=== PATIENT | male | born 1995 | race Caucasian/White ===

== ENCOUNTER 2025-06-20 08:00 | Outpatient (RCR) | payer MEDICARE, MEDICAID, SELFPAY ==
--- NOTE | 2025-06-20 10:10 | BH.SGPN.GN ---
Behaviors/Verbalizations/Mental Status: [] Pt alert and oriented, casually dressed and groomed. Eye contact good. Motor activity appropriate. Speech within normal limits. Mood: dysthymic. Affect: congruent. Thoughts linear, logical, no signs of hallucinations or delusions. Client Response/Progress/Benefit: [] Pt participated when prompted during group discussions. Attentive during psychoeducation on self-sabotage and its impact on mental health. Attentive as peers worked to define self-sabotage and identify reasons individuals perform self-sabotage behaviors (easy route at the time, feel as those we don't deserve any better, FOF, comfortable, etc). Attentive as peers identified the forms of self-sabotage that impact their mental health. Attentive during psychoeducation on types of self-sabotage; Procrastination, perfectionism, self-medication, poor communication,and chronic cancelling. Seemed to benefit from gaining awareness about the self-sabotage. Pt to continue IOP tx to improve distress tolerance, challenge distorted thoughts, and prevent decompensation.
--- NOTE | 2025-06-20 11:05 | BH.SGPN.GN ---
Behaviors/Verbalizations/Mental Status: [] Eye contact is good. Motor activity is appropriate. Appearance is casual. Speech is Appropriate. Mood is dysthymic and anxious. Affect is congruent. Thoughts are linear and logical. No evidence of psychosis. Client Response/Progress/Benefit: [] Pt responded well to session, engaged and contributing. Pt discussed with group things that contribute to mental wellness life. With peers, pt discussed things that would sabotage one's mental health wellness. Pt identified things pt personally does to sabotage as over-thinking, indecision, and perfectionism. Pt attentive during psychoeducation on ways to reduce self-sabotage and pt selected awareness and challenging beliefs?as skills that could help pt reduce self-sabotaging behaviors. Pt appeared to benefit from learning skills and gaining awareness of self-sabotaging behaviors. Pt will continue IOP tx to maintain safety, prevent decompensation/re-admission to psych unit, and to increase healthy coping.
--- NOTE | 2025-06-20 15:19 | BH.MDN_ITS ---
Multi-Disciplinary Note Note 60-min Individual: Time Started:: 09:00 Date: 06/20/25 Purpose of session/treatment goals addressed:: To gather information on pt's current stressors, symptoms, triggers, history, and tx goals. Another goal was to build rapport and provide emotional support. Eye Contact:: Good Motor Activity:: Appropriate Appearance:: Casual Speech:: Appropriate Mood:: Depressed Affect:: Congruent Thoughts:: Linear, Logical and No evidence of hallucinations/delusions noted Staff Interventions:: motivational interviewing, psychoeducation on: (cognitive triangle), rapport building, strengths perspective, treatment planning and completed risk assessment / safety planning (cssr-s) Client Response:: Pt responded well to session, open to meeting with therapist. Pt reports that he is trying to have ?an open mind? when it comes to IOP as pt has a history of therapy not being as helpful as he had hoped it would be. Pt has done individual therapy in the past with varying benefit. Reports he was first diagnosed with Bipolar disorder at age 9 and has struggled with his mental health for as long as he can recall. Prior hx of borderline personality disorder and PTSD related to childhood trauma/emotionally distant parents. Long hx of multiple inpatient psychiatric hospitalizations. Most recent hospitalization was 05/10/2025 through 05/17/2025 at [facility] due to an overdose attempt after his girlfriend broke up with him and refused to allow pt to have contact with their 3-month-old daughter. Reports that he had been living with his ex and her mother, and had gotten into an argument with his ex about pt not working. Pt reported he ?blew up? at her via text and when he got home found he was locked out of the house and told he could not return. Shared that he then took around 300 hydroxyzine and called his mother who had him admitted. Pt reports no sx following the overdose attempt outside of fatigue. Did not require medical attention. Has not seen his daughter or ex since and is currently living with his mother. Reports this is a stressor as he is not close with his mother and they often disagree on things. Is currently pursuing legal visitation rights of his daughter which is also a stressor. Pt reports wanting to work on better managing his emotions, reduce intensity and frequency of suicidal ideation, as well as improve his ability to function at baseline. Risks/Concerns:: Pt reports daily, chronic SI that is passive. Pt denies any active SI, plan, or intent as of 06/20/25. Progress Toward Goals/Plan:: Pt's first day of IOP tx, no progress to document. Pt is seeking therapy that will help him to improve his sx and better manage his emotions. Pt noted that he has had mental health issues for most of his life and he has improved in many ways, but he is still very depressed and disconnected from his emotions. Pt will continue IOP tx to prevent decompensation, improve daily functioning, and gain healthy coping skills. Time Stopped:: 09:55
--- NOTE | 2025-06-20 15:19 | BH.MTP ---
Master Treatment Plan Patient Information Program Physician:: Dr. Sylwia Vásquez Primary Therapist:: WINNIE Chery Psychiatric Diagnoses Psychiatric Diagnoses:: Bipolar 1 disorder, depressed, severe; Borderline Personality Disorder Diagnosis Code(s):: F31.4 Estimated LOS Estimated LOS (in weeks):: 6 Problem/Goal #1 Problem/Goal #1 Stated Goal:: Client will increase mood stability, reduce depression, and reduce suicidal thoughts due to Bipolar 1 disorder through the Intensive Outpatient Program. Description of Barriers: Pt has been in several prior therapy groups and reports limited benefit. Pt additionally notes that he has unreliable transportation. Pt reports limited supports in the area as well and is currently living with his mother which is a stressor. Pt reports ongoing legal issues as well which could impact attendance. Functional Impact: Wali is a 29y/o male who presented to [facility] IOP program for further evaluation and treatment of bipolar 1 disorder current episode depressed and borderline personality disorder. Wali reports long a long history of bipolar disorder diagnosed initially when he was 9 years old with multiple episodes of decompensation and hospitalization. Most recently he was prescribed trazodone to help him sleep but reports that this put him into a manic episode leading to his girlfriend kicking him out. They have a 3-month-old daughter together and he has not seen her since April. He notes that as soon as she kicked him out he attempted to overdose on a mixture of pills and said he thinks he took around 300 hydroxyzine but only felt a little bit tired. Reportedly did not require medical or ICU admission and was admitted to [facility] 05/10/2025 through 05/17/2025 for the suicide attempt. He was taken to the hospital because after he took the pills he reached out to his mother who called 911. He endorses in the hospital he was taken off of all of his medications and placed on Risperdal. Since discharge Risperdal has been titrated up to 2.5 twice daily and he was started back on Tegretol 200 mg daily, hydroxyzine as needed and he has also been started on Caplyta 42 mg and Zoloft 25 mg. He said he is currently feeling depressed and just feels depressed at baseline and does not remember ever not feeling depressed. He is chronic suicidal ideation and denies any plans to harm himself at this time. Notes he sleeps a lot of hours but does not feel rested and has poor energy and concentration throughout the day, also endorses difficulty with memory and crying spells. Goal Relevant Strengths/Supports: Pt is resilient, open to therapeutic environment, and motivated Objectives Objective #1: Stated Objective: Client will learn and utilize 2-3 healthy coping strategies to better manage depressive and mood symptoms as shown by reduced DSM-5 scores. Interventions: Through group and individual sessions, therapist will help client identify triggers and warning signs of depression and emotional dysregulation including emotional, physical, and behavioral changes.Therapist will teach client various coping skills to manage symptoms and give tangible resources to use to regulate emotions. Therapist will use cognitive restructuring techniques and help client gain awareness of negative thoughts that reinforce depressive cycles. Discharge Criteria: Pt will be able to identify and report implementing 2-3 coping mechanisms for depression. Pt will show a reduction in depressive sx per DSM-5 and self report. Target Date: 08/02/25 Review Date: 07/11/25 Objective #2: Stated Objective: Client will learn 2-3 techniques to better manage interpersonal relationships. Interventions: Through group and individual sessions, client will learn strategies to improve communication, resolve conflict, and increase emotional regulation to better manage interpersonal relationships. Therapist will also teach client about self-forgiveness, boundaries, and radical acceptance to help client heal from previous relationships. Discharge Criteria: Pt will self-report improved relationships and reduced interpersonal conflict. Pt will additionally describe use of at least 2 interpersonal communication skills. Target Date: 08/02/25 Review Date: 07/11/25
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
--- NOTE | 2025-06-21 08:25 | BH.PSY.EVA_ITS ---
Initial Treatment Plan Patient Information Visit Information: ADMISSION DATE: EXPECTED LOS: 4-6 weeks
--- NOTE | 2025-06-21 08:25 | BH.DR.ITP ---
Initial Treatment Plan Patient Information Visit Information: ADMISSION DATE: EXPECTED LOS: 6-8 weeks Diagnoses:: Bipolar I disorder most recent episode depressed Problems/Symptoms Problem #1:: Bipolar I disorder most recent episode depressed Symptom:: depressed mood, excessive sleep with poor appetite, poor energy, passive SI, poor concentration, poor memory with crying spells and anhedonia
--- NOTE | 2025-06-21 09:45 | BH.NA ---
Physical Data Vital Signs Pulse Rate: 78 Blood Pressure: 136/84 Height/Weight Height: 1.83 m Weight:: 108.862 kg Weight in Pounds: 240.0 lbs Current Medication Compliance Medication Compliance Do you take your medication as prescribed?: Yes Functional Assessment Sleep Pattern Describe any problems with sleeping: Client states he has been sleeping 12-14 hours per week. Sensory/Communication Assess Vision Problems Do you have any vision problems?: Glasses Communication Problems Do you have difficulty understanding what people are saying?: No Medical Problems/History Respiratory Conditions Respiratory: Other (See comments) (TANISHA- states he had a sleep study years ago that showed mild sleep apnea but states it was not severe enough for insurance to cover a PAP machine) Gastrointestinal Conditions Gastrointestinal: Other (See comments) (GERD) Pain Assessment Do you have acute or chronic pain?: No Surgical History Surgical History Have you had any surgeries? If so, list type and date:: Yes (appendectomy, ear tubes, right arm) Substance Abuse Substance Abuse Please describe substance abuse in the last 30 days:: Client denies tobacco or alcohol use. Client states he has had some marijuana use in the past but denies at this time. Client denies caffeine use. Mental Status Summary Mental Status Significant Findings/Observations on Appearance and Mood:: Client is alert and oriented x 4. Client is casually groomed. Client is cooperative with assessment. Client makes good eye contact. Client's voice has normal rate and volume. Client has a somewhat restricted affect. Client makes logical associations and has normal processing. Client denies delusions/hallucinations at this time, but does state he has a history of them with jayla. Client reports chronic passive SI, stating I can remember not wanting to live as early as 4 years old stating this has been chronic his whole life. Client denies any active thoughts or intent or plan. Suicide Assessment Suicidal Ideation Are you currently or have you been suicidal in the past?: Yes Suicidal Intentional Rating Scale (SIRS): Current suicidal thoughts/No plan/Contracts for safety (chronic passive ideations) Physician Notification Past Psychiatric History MH Treatment Hx Past Psychiatric Medications:: [place] (made him feel too numb), trazodone (took for 1 week, made him manic), Seroquel, Depakote, Risperdal (muscle tension) Age of first mental health symptoms: Client states he was diagnosed with bipolar disorder and ADHD when he was 9 years old. Client states he started medication for mental health at that time. Describe (age, circumstance, etc) any past hospitalizations: Client states he has been hospitalized as a minor several times, and states he has been hospitalized as an adult 4 or so times, stating the last hospitalization was at [facility] 05/10-05/17/25 due to a suicide attempt by overdosing on his medications. Current providers for mental health treatment (counselor, psychiatrist, child welfare caseworker, etc.): Allison Mata at [facility] for psychiatry Fall Risk Assessment Age Age: Less than 60 Mental Status Mental Status: Willing & able to ask for assistance when needed Physical Status Physical Status: No problems Impairments Impairments: None Elimination Elimination: Continent AND independent Gait or Balance Gait or Balance: Walks independently Hx of Falls History of falls in the past 6 months: No known history Medications/Substances Psychotropics:: Antidepressants, Antipsychotics and Antihistamines (e.g. Benadryl) Medications/substances used within the past 24 hours or ordered to administer: 3 or more of the medications/substances listed above Total Score Total Points:: 2 RN Summary of Impressions Impressions Recommendations Impressions: Psychiatric Issues: Bipolar 1 disorder Level of Care How do the client's current symptoms and functional deficits support need for this level of care?: Client is at [facility] after a recent hospitalization at [facility] in April 2025 after a suicide attempt by overdose of medication. Client states this was after his girlfriend broke up with him and took his 3 month old daughter with her when she left. Client states he has not seen his daughter and this is very stressful for him. Client reports chronic SI since he was a child, and states his chronic SI continues to but denies active thoughts, intent or plan at this time. Client states his daughter is a protective factor. Client reports a long history of periods of jayla since he was a child, and states he does have hallucinations when he goes off his mental health medication. Client states he is compliant at this time with medication and denies delusions/hallucinations. Client does report panic attacks, feeling like he disassociates for periods of time, and has decreased energy and is sleeping 12-14 hours per day. IOP will promote gains and prevent further decompensation while providing social support and skills training. Nutritional Screen Height/Weight Height: 1.83 m Weight:: 108.862 kg Weight in Pounds: 240.0 lbs Nutrition Screening Normal Weight: 108.862 kg Normal/Usual Weight in Pounds: 240.0 lbs Have you lost weight without trying: No (states his lowest weight was 190lbs and has been trying to lose weight again but has not lost weight) Have you been eating poorly because of a decreased appetite: Yes (poor appetite due to stress, break up with girlfriend and not seeing his daughter) Recently been on tube feeds, TPN, or have any nutritional access device in place: No Have any large open wounds or wounds that are not healing: No Calculated Weight Change: 0 Change in weight Score: 0 MST Screening Tool Score: 1
[2025-06-21 10:09] VITALS: BP 136/84; PULSE 78
--- NOTE | 2025-06-21 10:10 | BH.SGPN.GN ---
Behaviors/Verbalizations/Mental Status: [] Pt alert and oriented, casually dressed and groomed. Eye contact good. Motor activity appropriate. Speech within normal limits. Affect congruent, mood euthymic. Thoughts linear, logical, no signs of hallucinations or delusions. Client Response/Progress/Benefit: [] Client engaged during group session as evidenced by contributions during group discussions, appearing to listen to others, and taking notes. Client engaged in small group discussion about barriers that keep people from having difficult conversations. Group identified potential reasons individuals avoid difficult conversations which included; feeling uncomfortable, reaction of others, fear, and not in a good place mentally. Group also identified benefits to having crucial conversations. Pt identified that they only set boundaries in crucial conversations when the other person decides to do so first. Client seemed to benefit from increased awareness and education about importance of having difficult conversations and recognizing the impact of avoiding such conversations. Client to continue IOP to prevent decompensation, increase healthy coping, and improve functioning. Narrative Note: []
--- NOTE | 2025-06-21 11:10 | BH.SGPN.GN ---
Behaviors/Verbalizations/Mental Status: [] Pt alert and oriented, casually dressed and groomed. Eye contact good. Motor activity appropriate. Speech within normal limits. Affect congruent, mood euthymic. Thoughts linear, logical, no signs of hallucinations or delusions. Client Response/Progress/Benefit: [] Pt was an active participant, engaged in activities and discussion. Pt able to identify ways they negatively contribute to crucial conversations and pt was engaged during psychoeducation of the different ways to build interpersonal effectiveness skills. Pt and peers practiced mirroring and active listening in partners. Group reviewed [employer] [employer] and used the handout to help map out how they would like a crucial conversation in their life to go. Pt shared with group that they want to have a crucial conversation with their ex about the state of their relationship moving forward. Pt will continue IOP tx to prevent decompensation and improve daily functioning Narrative Note: []
--- NOTE | 2025-07-15 10:10 | BH.SGPN.GN ---
Behaviors/Verbalizations/Mental Status: [] Pt alert and oriented, casual appearance, eye contact good. Motor activity appropriate. Speech within normal limits. Affect congruent. Mood euthymic. Thoughts linear, logical, no signs of hallucinations or delusions. Client Response/Progress/Benefit: [] Pt was an active participant in group discussions on defining conflict (internal/external) and possible benefits to conflict. Attentive during psychoeducation on conflict styles (avoidant, accommodating, competing, cooperative) and engaged during group discussion in which the group identified when it is beneficial to use conflict styles and pitfalls of each conflict style. Pt noted they connect most with avoidant and accommodating style of conflict. Pt was an able to connect the impact current style of conflict has on functioning. Benefited from increased awareness of the impact of conflict styles on mental health. Will continue in IOP to improve distress tolerance, continue building healthy coping skills, and prevent decompensation.
== END 2025-06-21 23:59 | disposition home or self-care (01) ==
LOC: BHIOP 08:00
PROVIDERS: PCP Family Medicine; Referring Provider Internal Medicine; Visit Provider Internal Medicine
DX: F31.4 Bipolar disorder, current episode depressed, severe, without psychotic features (principal); F60.3 Borderline personality disorder
CPT/HCPCS: S9480; 90837; 90853

== ENCOUNTER 2025-06-24 08:36 | Outpatient (RCR) | payer MEDICARE, MEDICAID, SELFPAY ==
--- NOTE | 2025-06-24 09:00 | BH.SGPN.GN ---
Behaviors/Verbalizations/Mental Status: [] Eye contact is good. Motor activity is appropriate. Appearance is casual. Speech is Appropriate. Mood is anxious and dysthymic. Affect is congruent. Thoughts are linear and logical. No evidence of psychosis. Reviewed daily check in sheet and suicidal ideations are at baseline. Client Response/Progress/Benefit: [] Pt was an active participant in group discussions. Daily symptom tracker notes 3/5 for depression, and 2/5 for anxiety. Pt shared his insights regarding radical acceptance and his limitations. From his perspective, accepting that his life will always be negative is helpful for him. Group allowed him to vent and did not challenge this perspective despite at its core is negative beliefs about himself and his future. Primary stressors include ongoing custody/court issues regarding his daughter. Limited progress. Benefited from group support, encouragement, and feedback. Will continue in IOP to maintain safety, prevent decompensation/re-admission, and increase healthy coping. Narrative Note: []
--- NOTE | 2025-06-24 10:05 | BH.SGPN.GN ---
Behaviors/Verbalizations/Mental Status: [] Eye contact is good. Motor activity is appropriate. Appearance is casual. Speech is Appropriate. Mood is dysthymic. Affect is full. Thoughts are linear and logical. No evidence of psychosis. Client Response/Progress/Benefit: [] Pt participated during the group discussion, providing input and remaining attentive during psychoeducation. Participated in experiential activity. Pt contributed during interactive discussion on the consequences of unhealthy expression of emotions. Worked with group to identify several consequences which included hurting relationships and isolating oneself. Contributing during interactive discussion on common potholes to effectively communicating such as; avoidance, isolation, bottling up emotions, yelling, and several more. Pt was able to relate and make connections between the experiential activity and the overall topic, managing emotions through activity. Benefited from increased awareness of how stress and emotions can impact one's ability to communicate. Will continue in IOP to prevent decompensation/re-admission to psych unit, maintain safety, improve daily functioning, and increase the use of healthy coping skills. Narrative Note: []
--- NOTE | 2025-06-24 11:10 | BH.SGPN.GN ---
Behaviors/Verbalizations/Mental Status: []Client alert and oriented, casually dressed and groomed. Eye contact good. Motor activity appropriate. Speech within normal limits. Affect congruent, mood anxious and depressed. Thoughts linear, logical, no signs of hallucinations or delusions. Client Response/Progress/Benefit: []Client engaged in session AEB client listening attentively to peers and providing input. Attentive during psychoeducation on 4 zones of regulation. Pt able to identify feelings and behaviors for each zone. Pt identified coping skills one can use to support self in each zone. Pt stated belief that pt is in the green zone today. Pt reports plan to reach out to supports today. Benefited from increased education on zones of regulation or stages of alertness for emotions and healthy coping skills to use for each zone. Pt will continue IOP tx to increase self-awareness, improve application of skills, and prevent decompensation. Narrative Note: []
--- NOTE | 2025-06-25 09:00 | BH.SGPN.GN ---
Behaviors/Verbalizations/Mental Status: [] Pt alert and oriented, Casually dressed and groomed. Eye contact good. Motor activity appropriate. Speech within normal limits. Affect congruent, mood calm. Thoughts linear, logical, no signs of hallucinations or delusions. Reviewed pt?s symptom tracker today, 2/5 for suicidal ideation, 05 for plan, and intent with 5 being severe. Client does not appear to be imminent risk to self. 06/25/25. Client Response/Progress/Benefit: []Pt was an active participant in group discussions. Attentive. Per patients daily symptom tracker, pt indicates a 3/5 for depression and a 3/5 for anxiety, with 5 being severe. Pt's mental health positive was making it to group. His other positive was spending a relaxing day in bed. The client stated that while this was relaxing it is not much different from how he normally spends his day, and does not have many hobbies. Pt's stressor was dealing with the court systems to gain rights to see his daughter. Pt was supportive and attentive to others in the group. Pt seemed to benefit from support from peers. Will continue IOP tx to promote healthy coping mechanisms, reduce negative thinking patterns, and prevent decompensation.
--- NOTE | 2025-06-25 10:05 | BH.SGPN.GN ---
Behaviors/Verbalizations/Mental Status: [] Eye contact is good. Motor activity is appropriate. Appearance is casual. Speech is Appropriate. Mood is anxious. Affect is congruent. Thoughts are linear and logical. No evidence of psychosis Client Response/Progress/Benefit: [] Pt was an active participant during group discussions and group activities. This portion of group was very psychoeducation heavy and pt was attentive during psychoeducation. Engaged during activity in which they identified which type of foods (i.e. carbs, sugar, salt, fast food, caffeine, etc) they seek out when sad, tired, angry, stressed, anxious, etc. Pt was able to identify the impact that certain foods have on their mental health through group example which was beneficial. Benefited from increased awareness of the connection between nutrition and mental health. Will continue in IOP to prevent decompensation/re-admission to psych unit, increase healthy coping, maintain safety, and improve functioning. Narrative Note: []
--- NOTE | 2025-06-25 11:10 | BH.SGPN.GN ---
Behaviors/Verbalizations/Mental Status: []Pt alert and oriented, casually dressed and groomed. Eye contact good. Motor activity appropriate. Speech within normal limits. Affect congruent, mood euthymic and anxious. Thoughts linear, logical, no signs of hallucinations or delusions. Client Response/Progress/Benefit: [] Pt was an active participant during group discussions and group activities. This portion of group was very psychoeducation heavy and pt was attentive during psychoeducation. Engaged during activity in which they identified their own maintenance cycles with food and how it impacts their mental health symptoms. Pt and peers identified barriers to breaking these cycles as well as ways to combat barriers. Pt stated he wants to work on reducing his salt intake. Benefited from increased awareness of the connection between nutrition and mental health and from identifying strategies. Will continue in IOP to prevent decompensation, increase distress tolerance, and improve daily functioning. ? Narrative Note: []
--- NOTE | 2025-06-26 09:00 | BH.SGPN.GN ---
Behaviors/Verbalizations/Mental Status: [] Pt alert and oriented, Casually dressed and groomed. Eye contact fair. Motor activity appropriate. Speech within normal limits. Affect congruent, mood depressed. Thoughts linear, logical, no signs of hallucinations or delusions. Reviewed pt?s symptom tracker today, reports a 5/5 for suicidal ideation and a 0/5 for plan, and intent. Pt's scores are elevated due to a situational stressor. Pt is future oriented. Does not appear in imminent risk of danger to self or others. 06/26/25. Client Response/Progress/Benefit: []Pt was an active participant in group discussions. Attentive. Per patients daily symptom tracker, pt indicates a 5/5 for depression and a 2/5 for anxiety, with 5 being severe. Pt's first mental health win was having an easier time falling asleep. Pt stated that the previous day was awful and that he could not think of any other positives. When challenged to try to find a positive, pt could not, stating that he made it to group, but does not consider that a win. Pt's stressor is facing possible eviction from his mother's apartment. Pt stated that the landlord does not want him there, as he is involved in a legal trevino for his daughter, and does not want children in the complex. Pt seemed to benefit from support from peers. Will continue IOP tx to promote healthy coping mechanisms, reduce negative thinking patterns, and prevent decompensation.
--- NOTE | 2025-06-26 11:10 | BH.SGPN.GN ---
Behaviors/Verbalizations/Mental Status: [] Pt alert and oriented, casually dressed and groomed. Eye contact good. Motor activity appropriate. Speech within normal limits. Affect congruent, mood anxious. Thoughts linear, logical, no signs of hallucinations or delusions. Client Response/Progress/Benefit: [] Pt was attentive and contributed in small and larger group discussion. Pt completed strengths exploration worksheet and identified personal strengths to include: love, wisdom, and empathy. Pt able to acknowledge how these strengths are helping them and can continue to help pt in their mental health journey. Shared wanting to focus on set boundaries with others. . Benefited from identifying personal strengths and strategies for enhancing use of identified strengths. Pt to continue IOP tx to promote use of healthy coping skills, increase self-confidence, and reduce negative thinking patterns. Narrative Note: []
--- NOTE | 2025-06-26 15:09 | BH.MDN_ITS ---
Multi-Disciplinary Note Note 60-min Individual: Time Started:: 10:25 Date: 06/26/25 Purpose of session/treatment goals addressed:: Purpose of session was to aid pt in problem-solving current stressor, as well as increase insight into pt's internal locus of control. Eye Contact:: Good Motor Activity:: Appropriate Appearance:: Casual Speech:: Appropriate Mood:: Anxious and Depressed Affect:: Congruent Thoughts:: Linear, Logical and No evidence of hallucinations/delusions noted Staff Interventions:: thought challenging, motivational interviewing, psychoeducation on: (locus of control, spoon theory), CBT techniques, strengths perspective and other (provided resources on supportive housing options) Client Response:: Pt responded well to session, open to meeting with therapist. Pt shared that he is enjoying the IOP groups so far, though is finding himself feeling exhausted after group most days. Noted leaving yesterday and having limited energy to do much else afterward. Expressed frustration that it feels things in life that appear to come easily for others leave him feeling ?completely drained?. Discussed finding that others do not seem to understand how difficult it is to function day to day and that the only time her has felt u nderstood is when talking with someone struggling with chronic medical conditions. Reports this lack of understanding and empathy was a major area of difficulty in his last relationship. Pt connected well with psychoeducation on ?spoon theory? and inquired how make things require fewer spoons for him. Discussion on importance of perspective and consistent skill application to improve overall resilience and acceptance of his mental health struggles rather than viewing self as a ?problem to be fixed?. Plans to begin reminding himself of this throughout the week as he often views himself as not being ?fixed? fast enough. Went on to describe currently struggling with increased anxiety as he was informed by the landlord that he is no longer able to stay with his mother. Stated that the landlord did not give a concrete reason other than that pt is not listed on the lease. Pt reports that he does not want to get his mother evicted but does not have anywhere else to go. Recently applied for [employer] but is uncertain of where he is on the list. Receptive of looking with therapist and pt is projected a 3 month wait. Noted that his father would be willing to help with rent until receiving his housing voucher but pt is uncertain of which rentals are on the approved voucher list or how to find this out. Therapist provided pt with information regarding [place] [employer] to acquire a list of approved rental properties. Risks/Concerns:: Pt denies any active suicidal ideation, plan, or intent. Pt does have chronic passive thoughts of and reports that these are more prevalent today given his current stressors. Future orients and protective factors noted. Progress Toward Goals/Plan:: Progress limited as pt still early in tx. Does indicate finding the group environment and information he is leaving in sessions to be beneficial. Reports that knowing he is not alone in his mental health struggles has aided in improving his mood, as well as having a consistent place to go for support. Continues to struggle with significant mood instability and low distress tolerance reinforcing mood instability. Continues to report spending much of his time sleeping when he is not in group and notes not having any hobbies or special interests. Receptive of beginning to work with therapist on this. Recommended continued IOP treatment to improve mood stability and ability to function, as well as prevent decompensation. Time Stopped:: 11:19
--- NOTE | 2025-07-05 10:10 | BH.SGPN.GN ---
Behaviors/Verbalizations/Mental Status: [] Eye contact is good. Motor activity is appropriate. Appearance is casual. Speech is Appropriate. Mood is dysthymic. Affect is congruent. Thoughts are linear and logical. No evidence of psychosis. Client Response/Progress/Benefit: [] Pt was an active participant in group discussions. Attentive during psychoeducation. Contributed during interactive discussions in which peers attempted to define crisis. Group identified examples of crisis. Group also worked together to identify warning signs and unhealthy responses to crisis which included impulsivity, isolation, significant sleep changes, irrational thoughts/behaviors, and suicidal thoughts. Pt identified top 3 personal warning signs as:eating less, racing thoughts, and loss of interest. Benefited from increased understanding of crisis and awareness of personal responses to crisis. Pt will continue IOP tx to increase distress tolerance skills, maintain safety, and prevent decompensation/re-admission to psych unit. Narrative Note: []
--- NOTE | 2025-07-05 10:55 | PCM.BH.PN ---
Intake Vital Signs 06/21/25 10:09 07/05/25 10:55 Height 1.83 m 1.83 m Weight: 108.862 kg BP 136/84 H Pulse 78 BH Intake Visit Reasons: f/u bipolar 1 disorder most recent episode depress Allergies Sulfa (Sulfonamide Antibiotics) Adverse Reaction (Verified 06/21/25 09:52) Rash Medications ?Medication ?Instructions ?Recorded ?Confirmed ?Type diphenhydramine HCl 25 mg capsule 25 mg PO QHS PRN sleep 06/21/25 06/21/25 History (Benadryl) divalproex 250 mg tablet,delayed 250 mg PO BID #60 tabs 06/21/25 Rx release (Depakote) hydroxyzine pamoate 50 mg capsule 50 mg PO Q4H PRN anxiety 06/21/25 06/21/25 History lumateperone 42 mg capsule 42 mg PO DAILY 06/21/25 06/21/25 History (Caplyta) risperidone 0.5 mg tablet 0.5 mg PO BID 06/21/25 06/21/25 History risperidone 2 mg tablet 2 mg PO BID 06/21/25 06/21/25 History sertraline 25 mg tablet 25 mg PO DAILY 06/21/25 06/21/25 History HPI () History of Present Illness History provided by: patient Chief complaint: Depression HPI: Mood and anxiety doing better, feels overall, no SI today, got a new car, stressed d/t car breaking down, found a place to live, wants to get custody of daughter, July 25. Sleep is about the same. Still having anger fits, maybe less frequent, intensity high, couple hours last week, -Current psychiatric medications: Risperdal 2.5 mg twice daily, sertraline 25 mg, Caplyta 42 mg, hydroxyzine 50 mg every 4 hours as needed, Depakote 250 mg twice daily -SUBJECTVE: Reports overall mood and anxiety are doing better, still feels depressed but feels like his baseline depression is less than usual. Thinks the Depakote is helpful but also thinks that the fact that he got a new car and found a place to live have also improved mood. Has court July 25 to further attempt to get custody of daughter. Does note still having anger fits though less frequent, last episode was high intensity last week that lasted a couple of hours but notes it was triggered by car breaking down. No SI today. Tolerating Depakote without any acute complaints. Exam Mental Status Exam- Psych () Appearance casually dressed, adequately groomed and no apparent distress Attitude calm and other (Superficially cooperative) Activity/Motor Behavior MSE activity/motor behavior finding no adventitious movements Speech regular rate and regular volume Mood euythmic Affect full range Thought Process linear and logical Thought Content no delusions and no hallucinations Suicidal Ideation none Homicidal Ideation none Attention intact Concentration intact Sensorium/Orientation awake and alert Memory/Cognition intact Insight fair Judgement fair Assessment & Plan () Assessment & Plan (1) Bipolar 1 disorder, depressed, severe: Plan: Patient has found the Depakote helpful and feels like underlying depression level is less than usual though still does feel depressed. Denying any SI. Discussed further adjusting Depakote. He reports that the outpatient provider he is seeing for psychiatric care ordered lab work including a Depakote level that he is having done tonight, we will attempt to follow this lab work and may uptitrate Depakote depending on labs. Continue other current psychiatric medications. Did ask if these labs were going to be obtained so that his provider can further adjust his medications and he said that they were being obtained so that I would have additional information to make further adjustments. Charges/Coding Behavior Health Behavior Health EST Pt E/M: 62833 Est Pt Level IV
--- NOTE | 2025-07-05 11:15 | BH.SGPN.GN ---
Behaviors/Verbalizations/Mental Status: []Pt alert and oriented, appropriate grooming/appearance. Eye contact good. Motor activity appropriate. Speech within normal limits. Affect congruent, mood depressed. Thoughts linear, logical, no signs of hallucinations or delusions. Client Response/Progress/Benefit: []Pt was an active participant in group discussions. Attentive during psychoeducation. In small group pt along with peers developed an active plan for their crisis warning signs. Pt identified three crisis warning signs as well as an action plan for each. One crisis warning sign was loss of interest. Pt identified strategies to help with this such as: get back into video games, driving, and research support groups/activities. Benefited from increased awareness of crisis warning signs and by developing crisis intervention strategies. Will continue in IOP to improve distress tolerance, challenge distortions, and prevent decompensation. Narrative Note: []
--- NOTE | 2025-07-05 14:48 | BH.MDN_ITS ---
Multi-Disciplinary Note Note 45-min Individual: Time Started:: 09:15 Date: 07/05/25 Purpose of session/treatment goals addressed:: Purpose of session was to use the concept of locus of control to aid pt in identifying where he is able to take steps to continue to manage daily stressors, as well as give himself credit for recent progress. Eye Contact:: Good Motor Activity:: Appropriate Appearance:: Casual Speech:: Appropriate Mood:: Euthymic Affect:: Congruent Thoughts:: Linear, Logical and No evidence of hallucinations/delusions noted Staff Interventions:: motivational interviewing, psychoeducation on: (locus of control), CBT techniques and strengths perspective Client Response:: Pt actively engaged in session. Shared he had a recent stressor in which his car broke down, beyond what would be financially appropriate to fix. Pt shared that he was able to reach out to his father who was willing to aid him in purchasing a new car. Additionally, pt shared following-through with looking into the [facility] approved housing list and was able to successfully find an apartment. Shared plans to move in within the next few weeks. These were the two stressors immediately impacting his mood and reinforcing feelings of hopelessness. Pt describes increased sense of relief as a result of these stressors being resolved. Reports that when one thing in his life appears to ?go wrong? he struggles with engaging in all or nothing thinking and begins to convince himself that everything is bad or going to ?go wrong?. Pt receptive of psychoeducation on locus of control and identifies with primarily having and external locus of control. Insight that this has led pt to view the world as if he is a victim of his circumstances and has led to a sense of not being able to do anything about his circumstances. Did well to work with therapist on giving himself credit for where he was able to focus on addressing what was in his control in these recent stressor. Reports wanting to begin a regular accomplishment log and plans to begin doing so on the notes carol of his phone. Reports that actively challenging himself to ask what is in his control in a situation will likely improve his mood and distress tolerance skills in the moment as well. Risks/Concerns:: Pt denies any active suicidal ideation, plan, or intent. Progress Toward Goals/Plan:: Progress noted. Pt reports improved mood stability and increased sense of hope. Pt noted that he has been able to take steps to improve willingness to reach out to supports for help when needing it and not beating himself up for needing assistance. Pt reports he is additionally working on acceptance of his current estrangement with his ex and daughter. Continues to struggle with consistent skill application and mood stability. Pt recommended continued IOP tx to promote ongoing gains, increase functioning, and prevent decompensation. Time Stopped:: 09:45
--- NOTE | 2025-07-08 09:40 | BH.MDN_ITS ---
Multi-Disciplinary Note Note 30-min Individual: Time Started:: 09:10 Date: 07/08/25 Purpose of session/treatment goals addressed:: To work on goal #1 of pt's tx plan and to challenge negative thinking patterns. Eye Contact:: Good (tearful) Motor Activity:: Appropriate Appearance:: Casual Speech:: Appropriate Mood:: Depressed Affect:: Congruent Thoughts:: Linear, Logical and No evidence of hallucinations/delusions noted Staff Interventions:: thought challenging, CBT techniques, strengths perspective and completed risk assessment / safety planning Client Response:: Pt responded well to session, open to meeting with therapist. Pt tearful as soon as he entered the office and stated he is struggling with loneliness and missing his ?ex?. Pt reports that since the relationship ended 2 months ago, he has been distracted by trying to navigate stressors of housing, finances, and his car. These stressors have all been addressed and pt feels he is now able to think more about when led to the break- up. Shared ?I don?t want to live without my ex? and expressed remorse regarding the conflict leading to their break-up and pt being kicked out of the home. Pt shared attempting to reach out to her on various occasions without success. Reports trying to respect the boundary and accept that the relationship is over but is struggling with increased loneliness. Stated he feels as though he is ?always abandoned? and is beginning to reconsider trying to have a relationship with his daughter as he is worried this will be ?too much emotional pain? on the days he does not see her. Pt responded well to emotional support and gentle thought challenging by therapist. Pt noted that although he feels low now, he does recognize that he has made progress since his hospitalization in April. Pt receptive to discuss other ways he can reduce loneliness outside of a romantic relationship. In this discussion, pt noted that he does not desire to seek friendship or companionship in other ways. Noted that if he cannot have a relationship with his ex, he plans to ?move on? and pursue a new romantic relationship. Does not believe he would benefit from continuing to work on his mental health and personal relationship with himself first. Expressed only having purpose when in a relationship and does not view this as problematic. Therapist attempted to aid pt in identifying benefits of finding meaning and purpose in other things as well to prevent decompensation when not romantically involved with others. Pt resistant to this and expressed plans to download several dating apps to reduce loneliness and improve his mood. Risks/Concerns:: Pt reports having passive suicidal ideations this morning due to lonelieness and pt?s ex not responding to his attempts to reach out. Pt denies any active SI, plan, or intent to this therapist. Completed a CSSR-S since last visit. Pt reports ability to maintain safety and pt is future oriented. Progress Toward Goals/Plan:: Pt endorses worsening depression and passive SI today triggered by recent attempts to reach out to his ex-girlfriend. Pt able to challenge his thoughts some and expressed accepting the end of the rel ationship, but does report wanting to pursue a new relationship rather than give himself time to work on his mental health independent of a romantic relationship. Pt will continue IOP tx to prevent further decompensation, increase healthy support, and improve mood stability. Time Stopped:: 09:45
--- NOTE | 2025-07-08 10:10 | BH.SGPN.GN ---
Behaviors/Verbalizations/Mental Status: [] Eye contact is good. Motor activity is appropriate. Appearance is casual. Speech is Appropriate. Mood is content. Affect is congruent. Thoughts are linear and logical. No evidence of psychosis. Client Response/Progress/Benefit: [] Pt engaged participant AEB listening to others, engaging in activity, and providing feedback throughout. Attentive during psychoeducation and provided insight into obstacles that impede mental wellness. Pt shared with group current mental health reality and desired mental health reality. Identified barriers to desired reality which included difficulties with self-doubt, negative self-talk, and isolating. Benefited from taking look at current mental health state and obstacles for progress. Pt to continue in IOP tx to prevent decompensation, stabilize mood, and improve functioning. Narrative Note: []
--- NOTE | 2025-07-08 11:10 | BH.SGPN.GN ---
Behaviors/Verbalizations/Mental Status: [] Eye contact is good. Motor activity is appropriate. Appearance is casual. Speech is Appropriate. Mood is anxious and content. Affect is congruent. Thoughts are linear and logical. No evidence of psychosis. Client Response/Progress/Benefit: [] Pt was an engaged participant in group discussion and activity. Worked with group to identify strategies to help overcome barriers and obstacles to desired reality. Group developed strategies for the common barriers. Identified personal barriers to desired reality which included Self-doubt, fear, all or nothing thinking, and minimization. Was able to identify a skill to implement immediately to address self-doubt. Pt seemed to benefit from increased repertoire of healthy coping skills/strategies to overcome common barriers to moving forward. Will continue in IOP to prevent decompensation, stabilize emotions, increase healthy coping, and improve functioning. Narrative Note: []
--- NOTE | 2025-07-10 09:00 | BH.SGPN.GN ---
Behaviors/Verbalizations/Mental Status: [] Pt alert and oriented, Casually dressed and groomed. Eye contact good. Motor activity appropriate. Speech within normal limits. Affect congruent, mood depressed. Thoughts linear, logical, no signs of hallucinations or delusions. Reviewed pt?s symptom tracker today, denies suicidal ideation, plan, and intent.07/10/25 Client Response/Progress/Benefit: []Pt was an active participant in group discussions. Attentive. Per patients daily symptom tracker, pt indicates a 5/5 for depression and a 4/5 for anxiety, with 5 being severe. Pt's mental health positive was getting out of bed today. Pt stated that he has been struggling to get out of bed the past few days due to depressive symptoms. Pt's other mental health positive was that he found a friend that he could talk and relate to. Pt's reported that his stressor is having to deal with the feelings from his break-up that he has ignored due to having to deal with other stressors that are now resolved. Pt stated that he is working through processing these emotions in individual therapy. Pt was supportive and attentive to others in the group. Pt seemed to benefit from support from peers. Will continue IOP tx to promote healthy coping mechanisms, decrease negative thinking patterns, and prevent decompensation.
--- NOTE | 2025-07-10 10:15 | BH.SGPN.GN ---
Behaviors/Verbalizations/Mental Status: [] Client alert and oriented, casually dressed and groomed. Eye contact good. Motor activity appropriate. Speech within normal limits. Affect congruent, mood euthymic and anxious. Thoughts linear, logical, no signs of hallucinations or delusions. Client Response/Progress/Benefit: [] Client responded well to session AEB taking notes throughout and listening attentively to others. Client was attentive throughout group activity identifying famous individuals and how they overcame failure to be successful. Client helped group identify how fear of failure can impact mental health and relationships. Group identified it leads to self-sabotage, not trying, avoidance, and isolation. Client participated in experiential activity, working with group members to problem solve. Appeared to benefit from increased knowledge of fear of failure. Will continue IOP tx to improve self-confidence, reduce distorted thinking patterns, and increase emotional regulation. Narrative Note: []
--- NOTE | 2025-07-10 11:15 | BH.SGPN.GN ---
Behaviors/Verbalizations/Mental Status: [] Client alert and oriented, casually dressed and groomed. Eye contact good. Motor activity appropriate. Speech within normal limits. Affect congruent, mood euthymic and anxious. Thoughts linear, logical, no signs of hallucinations or delusions. Client Response/Progress/Benefit: [] Client responded well to session, engaged in the experiential activity and attentive throughout group processing. Client completed fear of failure worksheet and was able to identify thoughts and behaviors that reinforce personal fear of failure including cognitive distortions. Client participated in small group discussion regarding strategies to overcome fear of failure. Identified wanting to work on reminding himself he is not responsible for other's feelings. Appeared to benefit from increased knowledge of strategies to combat fear of failure and gaining self-awareness. Client will continue IOP tx to prevent decompensation, promote gains in reduced depressive symptoms and to reduce anxiety and avoidance. Narrative Note: []
--- NOTE | 2025-07-15 11:10 | BH.SGPN.GN ---
Behaviors/Verbalizations/Mental Status: []Client alert and oriented, casually dressed and groomed. Eye contact good. Motor activity appropriate. Speech within normal limits. Affect congruent, mood euthymic. Thoughts linear, logical, no signs of hallucinations or delusions. Client Response/Progress/Benefit: [] Pt engaged in session AEB contributing to discussion and engaging in small group. Attentive during discussion on strategies for more effectively managing conflict in personal life. Pt noted current conflict resolution style uses the most is accommodating because doesn't want to cause any issues. Pt participated in small group for activity and did well practicing how to manage conflict scenarios. Pt given handout on fair fighting rules and how to identify common conflict barriers. Pt indicated what needs improvement in conflict for them- ?taking time and using skills.? Appeared to benefit from gaining strategies to help pt better manage conflict. Will continue IOP tx to increase mood stability, improve distress tolerance skills, and gain healthy coping skills. ??? Narrative Note: []
--- NOTE | 2025-07-16 09:00 | BH.SGPN.GN ---
Behaviors/Verbalizations/Mental Status: []Eye contact is good. Motor activity is appropriate. Appearance is casual. Speech is Appropriate. Mood is content. Affect is congruent. Thoughts are linear and logical. No evidence of psychosis. Reviewed daily check in sheet and pt denies SI, plan, or intent as of this date 07/15/25. Client Response/Progress/Benefit: [] Pt was an active participant in group discussions. Attentive. Did well to identify 2 mental health wins, which included being able to see his daughter after surger last Tuesday. Shared this was meaningful as he has not seen her since April. Additional win noted as starting a new relationship. Described trying to effectively communicate and create a strong foundation within this relationship. Stressor noted as limited sleep last night. Appeared to benefit from provided support, encouragement, and feedback. Identified areas of progress and skills to maintain gains. Will continue IOP tx to improve mood stability, develop healthy coping repertoire, and prevent decompensation. Narrative Note: []
--- NOTE | 2025-07-17 09:00 | BH.SGPN.GN ---
Behaviors/Verbalizations/Mental Status: []Pt alert and oriented, disheveled appearance. Eye contact good. Motor activity appropriate. Speech within normal limits. Affect congruent, mood optimistic. Thoughts linear, logical, no signs of hallucinations or delusions. Reviewed pt?s symptom tracker, no risk for suicidal ideation, plan, or intent 07/17/25. Client Response/Progress/Benefit: []Pt was an active participant in group discussions. Attentive. Able to identify mental health wins including being in a new relationship which pt describes as supportive and having a court hearing on 07/25/25 which pt hopes will go in his favor. Pt's stressor today is ?I?m juggling a lot right now with a new relationship.? The group offered pt suggests managing this stressor and emotional support which pt reported was helpful. Pt is feeling ?content? this morning. Pt receptive to feedback from peers. Benefited from group support, encouragement, and feedback. Progress noted. Pt has chosen to voluntarily discharge from [facility] today. ??? Narrative Note: []
--- NOTE | 2025-07-17 09:26 | BH.MDN_ITS ---
Multi-Disciplinary Note Note 30-min Individual: Time Started:: 10:26 Date: 07/17/25 Purpose of session/treatment goals addressed:: Purpose of session was to review treatment progress, discuss healthy relationship characteristics, and complete discharge planning. Eye Contact:: Good Motor Activity:: Appropriate Appearance:: Casual Speech:: Appropriate Mood:: Euthymic Affect:: Bright Thoughts:: Linear, Logical and No evidence of hallucinations/delusions noted Staff Interventions:: motivational interviewing, psychoeducation on: (healthy relationship characteristics), CBT techniques, discharge planning and strengths perspective Client Response:: Pt receptive of session, active participant throughout. Reports he is doing well today and has been over the past week, since starting a new relationship. Pt shared that they had initially started getting to know one another ~2 weeks ago but this did not develop into something romantic until this past week. Pt Shared that although he can recognize the relationship is developing quickly and does not want to ?set myself up to be hurt?, he feels he feels he is able to trust and be vulnerable with her. Shared that their communication has been effective and they have spent time discussing expec tations and needs within a relationship. Pt does have insight that in the past he has ?trauma dumped? or shared more intimate details about his past before the other person was ready. Does not believe he will do so now, however in discussion pt struggled to identify internal boundaries and skills to prevent from this. Receptive of discussion reviewing healthy relationship characteristics and ways in which he can work on creating a strong foundation for his new relationship. Went on to describe an additional win as being able to see his daughter this past week for the first time since April. Noted that his ex had reached out to inform pt their daughter was having a planned surgery and invited him to be in the waiting room afterwards. Reports this went well and he was able converse with his ex without conflict. Shared this was encouraging and has created additional hope regarding their ability to coparent moving forward. Pt went on to state that given his recent progress and mood imp rovement, as well as several upcoming court dates to determine visitation with his daughter, pt no longer feels he will be able to attend IOP tx as frequently as program requires. Pt additionally reports feeling ready to drop down to outpatient level. Therapist expressed concerns related to ongoing maintenance; however, pt does not feel concerned and is established with outpatient counseling, case management, and psychiatry services. Risks/Concerns:: Pt denies any active suicidal ideation, plan, or intent. Progress Toward Goals/Plan:: Progress variable. Pt reports improved mood and reduced hopelessness and depressive sx. Pt attributes this to eliminating immediate stressors, as well as beginning a new relationship. Continues to struggle with external locus of control and therefore has difficulties identifying and consistently applying healthy inter coping mechanisms. Pt requesting to d/c from [facility] on this date due to upcoming scheduling conflicts. Will continue with outpatient providers. Time Stopped:: 10:52
--- NOTE | 2025-07-17 12:37 | BH.DS ---
Discharge Summary Demographics Date of Admission:: 06/20/25 Discharge Date: 07/17/25 Presenting Problems at Admission:: Wali is a 29y/o male who presented to [facility] IOP program for further evaluation and treatment of bipolar 1 disorder current episode depressed and borderline personality disorder. Wali reports long a long history of bipolar disorder diagnosed initially when he was 9 years old with multiple episodes of decompensation and hospitalization. Most recently he was prescribed trazodone to help him sleep but reports that this put him into a manic episode leading to his girlfriend kicking him out. They have a 3-month-old daughter together and he has not seen her since April. He notes that as soon as she kicked him out he attempted to overdose on a mixture of pills and said he thinks he took around 300 hydroxyzine but only felt a little bit tired. Reportedly did not require medical or ICU admission and was admitted to [facility] 05/10/2025 through 05/17/2025 for the suicide attempt. He was taken to the hospital because after he took the pills he reached out to his mother who called 911. He endorses in the hospital he was taken off of all of his medications and placed on Risperdal. Since discharge Risperdal has been titrated up to 2.5 twice daily and he was started back on Tegretol 200 mg daily, hydroxyzine as needed and he has also been started on Caplyta 42 mg and Zoloft 25 mg. He said he is currently feeling depressed and just feels depressed at baseline and does not remember ever not feeling depressed. He is chronic suicidal ideation and denies any plans to harm himself at this time. Notes he sleeps a lot of hours but does not feel rested and has poor energy and concentration throughout the day, also endorses difficulty with memory and crying spells. Discharge Diagnoses:: Bipolar 1 disorder, depressed, severe; Borderline Personality Disorder Reason for Discharge:: Completed IOP successfully. No longer meets criteria for IOP level of care. Treatment Progress During Treatment & Response: Client was consistent with attendance and actively engaged. Outcome measures indicate clinical improvement in several areas. Since IOP admission, pt has seen a reduction in suicidal ideation and reports that he is looking forward to his future. This is significant given pt?s hx of chronic daily suicidal ideation. The client is medication-compliant. He self-reports improvements in energy, motivation, and improved consistency in completion of personal hygiene, and continues to engage with his hobbies more consistently. Notably, the client reports increased future orientation. He reports improved utilization of coping skills and CBT-based interventions, including perspective challenging and behavioral activation strategies. Issues Still to be Addressed:: healthy relationship psychoeducation, stress management, distress tolerance, socialization and communication skills, boundary setting, and continued work on managing mood. Discharge Recommendations/Instructions:: At present, the patient is planning to continue with outpatient counseling and psychiatry through [facility]. Discharge Handout
== END 2025-07-17 11:47 | disposition home or self-care (01) ==
LOC: BHIOP 08:36
PROVIDERS: PCP Family Medicine; Referring Provider Internal Medicine; Visit Provider Internal Medicine
DX: F31.4 Bipolar disorder, current episode depressed, severe, without psychotic features (principal); F60.3 Borderline personality disorder
CPT/HCPCS: S9480; 90832; 90837; 90853